=== PATIENT | female | born 1990 | race Caucasian/White ===

== ENCOUNTER 2024-07-24 21:35 | Emergency (ER) | payer MEDICAID ==
[~2024-07-24] VITALS: Ht 162.6 cm; Wt 90.0 kg
[2024-07-24 21:46] VITALS: O2SAT 98
[2024-07-24 22:10] VITALS: O2SAT 99
[2024-07-25 03:45] VITALS: BP 129/87; PULSE 86; RESP 18
[2024-07-25] MEDS: IBUPROFEN 600MG TABLET PO ONE (03:45)
[2024-07-25 03:56] VITALS: TEMP 97.8
[2024-07-25] MEDS: ACETAMINOPHEN 325MG TABLET PO ONE (03:56)
[2024-07-25] MEDS ORDERED: IBUP-2029 MT (05:35)
== END 2024-07-25 06:00 | disposition home or self-care (01) ==
LOC: ER 21:35
DX: S90.01XA Contusion of right ankle, initial encounter (principal); M25.571 Pain in right ankle and joints of right foot; Z88.1 Allergy status to other antibiotic agents; Z88.2 Allergy status to sulfonamides; Z90.49 Acquired absence of other specified parts of digestive tract; X50.1XXA Overexertion from prolonged static or awkward postures, initial encounter; Y93.89 Activity, other specified; Y92.89 Other specified places as the place of occurrence of the external cause; Y99.8 Other external cause status
CPT/HCPCS: 99283; 73610; Z7610